=== PATIENT | male | born 1980 | race Caucasian/White ===

== ENCOUNTER 2023-04-24 14:08 | Emergency (ER) | payer BC, SELFPAY ==
[2023-04-24 14:56] VITALS: BP 159/92; PULSE 95; RESP 18; TEMP 36.9; O2SAT 99; BMI 42.5
--- NOTE | 2023-04-24 15:01 | DI.RAD.S_ITS ---
PROCEDURE: XR ANKLE LT MIN 3V INDICATIONS: pain since 04/15 TECHNIQUE: 3 views of the ankle were acquired. COMPARISON: None. FINDINGS: Bones: No fractures or dislocations. Ankle mortise is normally aligned. No suspicious bony lesions. Soft tissues: No tibiotalar joint effusion. Achilles tendon appears normal. IMPRESSION: No fracture. No osseous lesion. If symptoms and/or clinical suspicion for pathology persists, further assessment with repeat radiographs (7-10 days) or advanced imaging (e.g. CT, MRI or bone scan) should be considered. Dictated by: Lanette Francis MD, PhD on 04/24/2023 at 15:31 Approved by: Lanette Francis MD, PhD on 04/24/2023 at 15:32
[2023-04-24 15:59] VITALS: BP 182/100; PULSE 88; RESP 18; O2SAT 98
--- NOTE | 2023-04-24 16:03 | DI.RAD.S_ITS ---
PROCEDURE: XR FOOT LT MIN 3V INDICATIONS: pain TECHNIQUE: 3 views of the foot were acquired. COMPARISON: None. FINDINGS: Bones: No fractures or dislocations. Lucency in the medial margin of the head of the 1st metatarsal. Soft tissues: No tibiotalar joint effusion. Achilles tendon appears normal. IMPRESSION: Lucency in the head of the medial margin of the 1st metatarsal concerning for erosion. Please correlate with clinical and laboratory data to exclude inflammatory arthritis including gout. Dictated by: Lanette Francis MD, PhD on 04/24/2023 at 16:55 Approved by: Lanette Francis MD, PhD on 04/24/2023 at 16:56
--- NOTE | 2023-04-24 16:06 | ED_ITS ---
HPI - Extremity Problem <Garrett Bain PA-C - Last Filed: 04/24/23 18:12> General Chief complaint: Extremity Problem,Nontraumatic Stated complaint: lt ankle pain, swelling Time Seen by Provider: 04/24/23 16:00 Source: patient Mode of arrival: Ambulatory History of Present Illness HPI Narrative: 42-year-old male presents to the ED with left ankle and foot pain for 10 days. Patient states that he twisted his ankle on 04/15/[address]. Patient talked to his doctor who ordered an ultrasound to rule out a DVT. The ultrasound was negative for DVTs. Patient is here in the ED today since his foot and ankle pain has not improved since the injury. Patient is taking Advil with little relief. Patient denies numbness, tingling, weakness. Related Data Allergies Allergy/AdvReac Type Severity Reaction Status Date / Time ziprasidone [From David] AdvReac Seizure Verified 04/24/23 15:01 Review of Systems <Garrett Bain PA-C - Last Filed: 04/24/23 18:12> Review of Systems ROS Unobtainable: All systems reviewed & are unremarkable except as noted in HPI and below Constitutional Constitutional: Denies chills, Denies fatigue, Denies fever(s), Denies frequent falls, Denies lethargy and Denies weakness Eyes Eyes: Denies change in vision, Denies eye discharge, Denies irritation and Denies loss of vision ENT Ears, Nose, Mouth, and Throat: Denies change in voice, Denies dizziness, Denies neck pain, Denies sore throat and Denies throat swelling Cardiovascular Cardiovascular: Denies chest pain, Denies irregular heart rhythm, Denies lightheadedness, Denies palpitations, Denies dyspnea, Denies dyspnea on exertion and Denies orthopnea Respiratory Respiratory: Denies cough, Denies dyspnea, Denies dyspnea on exertion and Denies wheezing Gastrointestinal Gastrointestinal: Denies abdominal pain, Denies change in bowel habits, Denies diarrhea, Denies nausea and Denies vomiting Genitourinary Genitourinary: Denies hematuria, Denies flank pain, Denies urinary incontinence and Denies urinary urgency Musculoskeletal Musculoskeletal: Denies back pain, Denies muscle weakness, Denies neck pain, Denies numbness and Denies tingling Comments: Left ankle and foot pain. Integumentary/Breasts Skin/Breast: Denies pruritus, Denies erythema, Denies rash and Denies wounds Neurologic Neurologic: Denies behavioral changes, Denies confusion, Denies dizziness, Denies frequent falls, Denies loss of vision, Denies numbness, Denies tingling and Denies weakness Psychiatric Psychiatric: Denies anxiety, Denies behavioral changes, Denies confusion, Denies depression, Denies homicidal ideation and Denies suicidal ideation Endocrine Endocrine: Denies fatigue, Denies flushing and Denies palpitations Hematologic/Lymphatic Hematologic/Lymphatic: Denies easy bruising Allergic/Immunologic Allergic/Immunologic: Denies urticaria, Denies throat swelling and Denies wheezing Patient History <Garrett Bain PA-C - Last Filed: 04/24/23 18:12> Social History Smoking Status: Never smoker Smoking Status: Never smoker alcohol intake frequency: 0-2 drinks per day Substance Use Type: does not use Exam <Garrett Bain PA-C - Last Filed: 04/24/23 18:12> Narrative Exam Narrative: Const General:?cooperative, healthy appearing and comfortable [facility] Head:?normal to inspection Ears:?hearing grossly normal bilaterally Nose:?external nose normal Face and sinus:?normal facial exam and sinuses nontender Mouth:?oral mucosae normal Throat:?posterior oropharynx normal Eyes General:?appearance normal, both eyes and all related structures Neck Neck:?normal visual inspection and no lymphadenopathy noted Resp Effort & Inspection:?normal respiratory effort Auscultation:?clear to auscultation bilaterally Cardio Rate:?regular rate Rhythm:?regular rhythm Musculoskeletal There is some swelling to the top of the left foot with tenderness to palpation at the base of the 2nd. Erythema of big toe of the left foot. Strength and sensation is intact. There is full range of motion. Patient is neurovascularly intact. Neuro General:?patient alert, patient awake and patient oriented x3 Initial Vital Signs Initial Vital Signs: Vital Signs Temperature 98.5 F 04/24/23 14:56 Pulse Rate 95 H 04/24/23 14:56 Respiratory Rate 18 04/24/23 14:56 Blood Pressure 159/92 H 04/24/23 14:56 Pulse Oximetry 99 04/24/23 14:56 Oxygen Delivery Method Room Air 04/24/23 14:56 <Adeola Lee DO - Last Filed: 04/25/23 09:03> Initial Vital Signs Initial Vital Signs: Vital Signs Temperature 98.5 F 04/24/23 14:56 Pulse Rate 95 H 04/24/23 14:56 Respiratory Rate 18 04/24/23 14:56 Blood Pressure 159/92 H 04/24/23 14:56 Pulse Oximetry 99 04/24/23 14:56 Oxygen Delivery Method Room Air 04/24/23 14:56 Course <Garrett Bain PA-C - Last Filed: 04/24/23 18:12> Orders Ordered: ED Orders 04/24/23 15:01 XR ankle LT min 3V Stat 04/24/23 16:03 XR foot LT min 3V Stat Vital Signs Vital signs: Vital Signs - 8 hr 04/24/23 14:56 04/24/23 15:59 Temperature 98.5 F Pulse Rate 95 H 88 Respiratory Rate 18 18 Blood Pressure 159/92 H 182/100 H Pulse Oximetry 99 98 Oxygen Delivery Method Room Air Room Air <DO Tanner Camejo Last Filed: 04/25/23 09:03> Orders Ordered: ED Orders 04/24/23 15:01 XR ankle LT min 3V Stat 04/24/23 16:03 XR foot LT min 3V Stat Vital Signs Vital signs: Vital Signs - 8 hr 04/24/23 14:56 04/24/23 15:59 Temperature 98.5 F Pulse Rate 95 H 88 Respiratory Rate 18 18 Blood Pressure 159/92 H 182/100 H Pulse Oximetry 99 98 Oxygen Delivery Method Room Air Room Air MDM - Extremity (Nontraumatic) <Garrett Bain PA-C - Last Filed: 04/24/23 18:12> MDM Narrative Medical decision making narrative: 42-year-old male presents to the ED with left ankle and foot pain for 10 days. Concern for fracture/dislocation versus musculoskeletal sprain/strain. Will obtain ankle and foot x-ray. Will reassess. Ankle x-ray negative. Foot x-ray shows a lucency in the head of the medial margin of the 1st metatarsal concerning for erosion, could likely be inflammatory arthritis, gout. Discussed findings with patient. Recommend naproxen or ibuprofen. Recommend follow-up with PCP. ED return precautions discussed with patient. Patient verbalized understanding. Medical records reviewed: Yes Discharge Plan Departure Patient Disposition: Home Clinical Impression: Gout Instructions: DI for Gout Activity Restrictions/Additional Instructions: You were evaluated in the ED today for some foot pain. Your x-rays showed no fractures or dislocations. Your foot x-ray did show possible gout at the base of your big toe. The treatment for both the ankle sprain as well as the gout is NSAIDs. You may take either naproxen 500 mg twice a day for 3-7 days or ibuprofen 800 mg 3 times a day for 3-5 days. Please follow-up with your PCP in 2 days. Return to the ED if you have worsening symptoms, numbness, tingling, weakness. Stand Alone Forms: Patient Portal/API <Adeola Lee DO - Last Filed: 04/25/23 09:03> Cosign ED Attending Stephanie Attestation: I was immediately available in the department for consultation. Documentation has been reviewed.
== END 2023-04-24 17:38 | disposition home or self-care (01) ==
PROVIDERS: Emergency Provider Student in an Organized Health Care Education/Training Program
DX: M10.9 Gout, unspecified (principal)
CPT/HCPCS: 73610; 73630; 99281; 99283